=== PATIENT | male | born 1960 | race Caucasian/White ===

== ENCOUNTER 2021-12-21 08:54 | Day surgery (SDC) | payer BC, SELFPAY ==
[2021-12-21 09:14] VITALS: BMI 28.8
[2021-12-21 09:34] VITALS: BP 143/71; PULSE 48; RESP 18; TEMP 36.4; O2SAT 95
[2021-12-21] MEDS: Lactated Ringers 1,000 ML 100 ML IVCONT (09:45)
--- NOTE | 2021-12-21 11:08 | HO.ANESPROP2 ---
HPI - Anesthesia Eval Consult details Narrative: 61 M for colonoscopy [facility] Past Medical History Medical History (Updated 12/20/21 @ 13:20 by Philip Santacruz, JESUS) Depression Hyperlipidemia Functional capacity: independent ambulation Family History Family history of problems with anesthesia: No Surgical History Surgical History (Updated 12/20/21 @ 13:20 by Philip Santacruz, JESUS) History of carpal tunnel surgery History of colonoscopy History of hemorrhoidectomy History of surgery on right wrist History of Problems with Anesthesia: No Social History Social History Patient Tobacco Use Status: Never used Tobacco Second Hand Smoke Exposure: No Use of substances other than those prescribed or required for medical reasons: No Are you DNR?: No Advance Directives: No Advance Directives Information Provided: Yes Advance Directives on File: No Meds Allergies Allergy/AdvReac Type Severity Reaction Status Date / Time high doses of crestor (40mg) AdvReac Unknown muscle Uncoded 02/17/17 00:00 ( pain/cramping Active Medications: Current Medications Lactated Ringer's (Lr) 1,000 mls @ 100 mls/hr IVCONT .Q10H ROMA Last Admin: 12/21/21 09:45 Dose: 100 mls/hr Sodium Biphosphate/Sodium Phosphate (Sodium Phosphate,[place]-Dibasic 133 Ml Enema) 133 ml [place] ONCE PRN PRN Reason: Poor Colonoscopy Prep Results Home Medications Medication Instructions Recorded Confirmed Last Taken Type bupropion HCl 150 mg 24 hr tablet, 1 tab PO QAM 12/20/21 12/20/21 12/21/21 History extended release cefadroxil 500 mg capsule 1 cap PO Q12H 12/20/21 12/20/21 Unknown History escitalopram oxalate 20 mg tablet 1 tab PO DAILY 12/20/21 12/20/21 Unknown History fluoride (sodium) 1.1 % dental appl PO BID 12/20/21 Unknown History cream (Denta 5000 Plus) oxycodone 5 mg tablet 1 tab PO Q4-6H PRN Pain 12/20/21 12/20/21 Unknown History rosuvastatin 20 mg tablet 1 tab PO DAILY 12/20/21 12/20/21 Unknown History verapamil 120 mg 24 hr 1 cap PO BEDTIME 12/20/21 12/20/21 Unknown History capsule,extended release citalopram 20 mg tablet (Celexa) 20 mg PO DAILY 12/21/21 12/21/21 12/21/21 History Exam Exam Date and Time: December 21, 2021 1108 Height,Weight and Vital Signs: Height 5 ft 8 in Weight 86.183 kg Last Vital Signs Temp 97.5 F 12/21/21 09:34 Pulse 48 L 12/21/21 09:34 Resp 18 12/21/21 09:34 BP 143/71 H 12/21/21 09:34 Pulse Ox 95 12/21/21 09:34 O2 Del Method 12/21/21 09:34 Airway Mallampati Class: III TM Dist: >3cm Neck ROM: Full Loose/Missing/Broken Teeth: Yes ([place] , fillings ) Heart: S1,S2 Lungs: b/l breath sounds Assessment and Plan Assessment Anesthesia Assessment: Anesthesia Plan Discussed and Chart Reviewed Final Anesthetic Review Family History of Problems with Anesthesia: No History of Problems with Anesthesia: No NPO: Yes ASA Class: II Final Preanesthetic Review: Meds/Allgs Chart Reviewed, Consent Obtained/Reviewed and Anes Risks/Benef Reviewed Patient Risk: Intermediate Procedure Risk: Intermediate Anesthetic Plan Anesthetic Plan: MAC: Disposition: Standard PACU
[2021-12-21 12:06] VITALS: BP 89/45; PULSE 51; RESP 15; TEMP 36.2; O2SAT 97
[2021-12-21 12:09] VITALS: BP 90/47; PULSE 48; RESP 16; O2SAT 97
--- NOTE | 2021-12-21 12:09 | PM.OP ---
Brief Operative Note Date of Service: 12/21/21 Pre-op diagnosis: Screening Post-op diagnosis: other (Colon polyp) Procedure: Colonoscopy to the cecum and TI with hot snare polypectomy Surgeon: Chris Mariano Anesthesia: MAC Was an Retarder Operator used for this Procedure?: No Estimated blood loss (mL): 0 Pathology: other (A. Polyp at 60cm) Condition: stable Disposition: PACU
[2021-12-21 12:21] VITALS: BP 97/51; PULSE 52; RESP 16; O2SAT 97
[2021-12-21 12:36] VITALS: BP 116/74; PULSE 47; RESP 16; O2SAT 97
[2021-12-21 12:48] VITALS: BP 116/74; PULSE 44; RESP 16; TEMP 36.2; O2SAT 97
--- NOTE | 2021-12-27 13:18 | OP_ITS ---
SURGEON: Chris Mariano MD INDICATIONS: The patient presents for evaluation of personal history of tubular adenoma of the colon and colorectal cancer screening. Full consent has been obtained from him for this, including risks of bleeding and perforation. PREOPERATIVE DIAGNOSIS: POSTOPERATIVE DIAGNOSIS: PROCEDURE PERFORMED: Colonoscopy to cecum and terminal ileum with hot snare polypectomy. ESTIMATED BLOOD LOSS: COMPLICATIONS: ANESTHESIA: Monitored anesthesia care. ASSISTANTS: SPECIMENS: PREOPERATIVE DIAGNOSES: Colorectal cancer screening and personal history of tubular adenoma of the colon. POSTOPERATIVE DIAGNOSES: Colorectal cancer screening and personal history of tubular adenoma of the colon. Colon polyp, diverticulosis, and internal hemorrhoids. DESCRIPTION OF PROCEDURE: The patient was placed in the left lateral decubitus position. The digital rectal exam revealed no abnormalities. The Olympus video pediatric colonoscope was entered into the rectum and advanced easily to the cecum. Once in the cecum, I did identify normal-appearing cecal pouch with appendiceal orifice and a normal-appearing ileocecal valve. The terminal ileum was cannulated and appeared normal. The scope was withdrawn back in the colon. The entire cecum and ileocecal valve appeared normal. The scope was then slowly withdrawn assessing all mucosal surfaces carefully. Preparation was excellent. At 60 cm, was a slightly raised approximately 8 mm to 10 mm polyp, which was removed by hot snare polypectomy and recovered by suction. The polypectomy site appeared clean, without any sign of residual polyp nor bleeding. I did not visualize any other polyps, colitis, or angiodysplasia. There was a mild amount of sigmoid diverticulosis. In the rectum, scope was retroflexed visualizing some small internal hemorrhoids as well as some scarring from previous hemorrhoid surgery. The scope was straightened and withdrawn from the patient. He tolerated the procedure well and was returned to the recovery area in stable condition. IMPRESSION: 1. Colon polyp, status post hot snare polypectomy. 2. Diverticulosis. 3. Internal hemorrhoids. PLAN: The results of the pathology will be checked. I would recommend a repeat colonoscopy in 5 years for further surveillance. He will otherwise see me on a p.r.n. basis. MD DANGELO Crump/GRACIELA / [id number]
== END 2021-12-21 13:00 | disposition home or self-care (01) ==
PROVIDERS: PCP Internal Medicine; Visit Provider Internal Medicine
PROC: 0DJD8ZZ Inspection of Lower Intestinal Tract, Via Natural or Artificial Opening Endoscopic (ICD-10-PCS; CPT 45378; principal; 2021-12-21 10:20)
DX: Z12.11 Encounter for screening for malignant neoplasm of colon (principal); Z86.010 Personal history of colon polyps; D12.4 Benign neoplasm of descending colon; K57.30 Diverticulosis of large intestine without perforation or abscess without bleeding; K64.8 Other hemorrhoids; F32.A Depression, unspecified; E78.5 Hyperlipidemia, unspecified; Z79.899 Other long term (current) drug therapy; Z86.16 Personal history of COVID-19; Z87.891 Personal history of nicotine dependence
CPT/HCPCS: 45385; 88305